=== PATIENT | male | born 1945 | race Caucasian/White ===

== ENCOUNTER 2017-02-03 06:46 | Day surgery (SDC) | payer MEDICARE, OTHER ==
[2017-02-03] MEDS ORDERED: Lactated Ringers 1,000 ML IV SCH (08:00)
[2017-02-03] MEDS ORDERED: Midazolam 1 MG/ML 2 ML SDV IV ONE (08:00)
[2017-02-03] MEDS ORDERED: Propofol 200 MG/20 ML SDV IV ONE (08:00)
--- NOTE | 2017-02-03 08:20 | PCM.OPNOTE ---
- General Post-Op/Procedure Note Date of Surgery/Procedure: 02/03/17 Operative Procedure(s): c scope with bx Findings: diverticulosis distal transverse colon polyp Pre Op Diagnosis: hx of dysplastic colon polyp Post-Op Diagnosis: diverticulosis. distal transverse colon polyp Anesthesia Technique: MAC Primary Surgeon: Jose Burgos Anesthesia Provider: Kayla Campos Pathology: transverse colon polyp Complications: None Condition: Good Free Text/Narrative:: see dictation
[2017-02-03 09:42] VITALS: BP 129/82
--- NOTE | 2017-02-03 11:07 | OR ---
DATE OF OPERATION: 02/03/2017 SURGEON: Jose Burgos MD PROCEDURE PERFORMED: Colonoscopy with cold forceps biopsy. PREOPERATIVE DIAGNOSIS: History of dysplastic colon polyps. POSTOP DIAGNOSIS: 3 mm polyp, distal transverse colon. INDICATIONS FOR PROCEDURE: This is a 71-year-old white male, who presents for followup colonoscopy. 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 He was offered and accepted the scope. DESCRIPTION OF OPERATION: After an excellent IV sedation was administered, digital rectal exam was performed. No marked abnormality was noted. The flexible colonoscope was inserted and advanced to the cecum without difficulty. The prep was excellent. The following findings were noted. Ascending colon, unremarkable. Transverse colon; distal transverse colon, hidden behind a fold, small 3-4 mm polyp biopsied in a single bite with a 5 mm polyp with biopsy forceps. Descending colon, scattered diverticula. Sigmoid, mild diverticulosis. Rectum and anus unremarkable. Colon was deflated, scope was removed. The patient tolerated the procedure well and was taken to recovery room in good condition. /[id number] /MODL
== END 2017-02-03 09:22 | disposition home or self-care (01) ==
LOC: FB.SDS 06:46
PROVIDERS: ATTEND Surgery
DX: Z12.11 Encounter for screening for malignant neoplasm of colon (principal); D12.3 Benign neoplasm of transverse colon; K57.30 Diverticulosis of large intestine without perforation or abscess without bleeding; K21.9 Gastro-esophageal reflux disease without esophagitis; Z98.890 Other specified postprocedural states; Z79.82 Long term (current) use of aspirin
CPT/HCPCS: 00902; 45380; 88305; J2250; J2704; J7120

== ENCOUNTER 2017-08-18 06:47 | Day surgery (SDC) | payer MEDICARE, OTHER ==
[~2017-08-18 06:47] MED LIST: Lactated Ringers 1,000 ML IV SCH; Sodium Chloride 0.9% 10 ML Syringe FLUSH PRN
[2017-08-18] MEDS ORDERED: Propofol 200 MG/20 ML SDV IV ONE (06:48)
--- NOTE | 2017-08-18 08:18 | PCM.OPNOTE ---
- General Post-Op/Procedure Note Date of Surgery/Procedure: 08/18/17 Operative Procedure(s): c scope with bx Findings: diverticulosis descending colon polyp Pre Op Diagnosis: hx of dysplastic colon polyp Post-Op Diagnosis: diverticulosis. descending colon polyp Anesthesia Technique: BRENDA Primary Surgeon: Jose Burgos Anesthesia Provider: Mike Randolph Pathology: colon polyp Complications: None Condition: Good Free Text/Narrative:: see dictation
--- NOTE | 2017-08-18 10:02 | OR ---
DATE OF OPERATION: 08/18/2017 SURGEON: Jose Burgos MD PROCEDURE PERFORMED: Colonoscopy with cold forceps biopsy. PREOPERATIVE DIAGNOSIS: Personal history of dysplastic colon polyp. POSTOPERATIVE DIAGNOSIS: Small 1 mm polyp, descending colon. INDICATIONS FOR PROCEDURE: This is a 72-year-old white male who presented for followup colonoscopy. The patient had a scope 6 months ago and had several polyps removed including one that had some dysplastic changes. He was therefore offered and accepted a C-scope. DESCRIPTION OF PROCEDURE: After an excellent IV sedation was administered, digital rectal exam was performed. No marked abnormality was noted. Flexible colonoscope was inserted and advanced to the cecum without difficulty. The following findings were noted: Prep was good. Ascending colon, occasional diverticula. Transverse colon, occasional diverticula. Descending colon; on the backside of one fold, a small 1 mm polypoid appearing lesion was encountered, biopsied with cold biopsy forceps and sent for permanent. Occasional diverticula. Sigmoid, mild diverticulosis. Rectum and anus unremarkable. Colon was deflated. Scope was removed. The patient tolerated the procedure well and was taken to Recovery in good condition. /[id number] /MODL
[2017-08-18 10:26] VITALS: BP 143/72
== END 2017-08-18 09:15 | disposition home or self-care (01) ==
LOC: FB.SDS 06:47
PROVIDERS: ATTEND Surgery
DX: K63.5 Polyp of colon (principal); K57.30 Diverticulosis of large intestine without perforation or abscess without bleeding; D01.0 Carcinoma in situ of colon; M10.9 Gout, unspecified; Z86.010 Personal history of colon polyps; Z79.82 Long term (current) use of aspirin; Z98.890 Other specified postprocedural states
CPT/HCPCS: 00810; 45380; 88305; J2704; J7120

== ENCOUNTER 2022-04-07 07:32 | Day surgery (SDC) | payer MEDICARE, OTHER ==
[~2022-04-07 07:32] MED LIST changes: +Lactated Ringers 1,000 ML IV PRN; -Lactated Ringers 1,000 ML IV SCH; -Sodium Chloride 0.9% 10 ML Syringe FLUSH PRN
[2022-04-07] MEDS ORDERED: Midazolam 1 MG/ML 2 ML SDV IV ONE (07:33)
[2022-04-07] MEDS: Sodium Chloride 0.9% 10 ML Syringe FLUSH PRN (08:23)
[2022-04-07] MEDS: acetaZOLAMIDE 500 MG Cap.ER PO ONE (09:50)
[2022-04-07 09:59] VITALS: PULSE 60
[2022-04-07 10:02] VITALS: BP 135/92
== END 2022-04-07 10:10 | disposition home or self-care (01) ==
LOC: FB.SDS 07:32
PROVIDERS: ATTEND Ophthalmology
DX: H25.813 Combined forms of age-related cataract, bilateral (principal); I25.2 Old myocardial infarction; N18.32 Chronic kidney disease, stage 3b; E78.2 Mixed hyperlipidemia; H43.811 Vitreous degeneration, right eye; H40.013 Open angle with borderline findings, low risk, bilateral; H52.223 Regular astigmatism, bilateral; I25.10 Atherosclerotic heart disease of native coronary artery without angina pectoris; I50.9 Heart failure, unspecified; Z79.899 Other long term (current) drug therapy
CPT/HCPCS: A9270-GY; J2250; J3490; V2632

== ENCOUNTER 2022-04-21 09:00 | Day surgery (SDC) | payer MEDICARE, OTHER ==
[2022-04-21] MEDS ORDERED: fentaNYL 100 MCG/2 ML SDV IV ONE (09:01)
[2022-04-21] MEDS ORDERED: Midazolam 1 MG/ML 2 ML SDV IV ONE (09:01)
[2022-04-21] MEDS ORDERED: Lactated Ringers 1,000 ML IV PRN (09:30)
[2022-04-21] MEDS ORDERED: Sodium Chloride 0.9% 10 ML Syringe FLUSH PRN (09:30)
[2022-04-21] MEDS ORDERED: acetaZOLAMIDE 500 MG Cap.ER PO ONE (11:00)
[2022-04-21 12:27] VITALS: BP 119/77; PULSE 59
== END 2022-04-21 11:25 | disposition home or self-care (01) ==
LOC: FB.SDS 09:00
PROVIDERS: ATTEND Ophthalmology
DX: H25.813 Combined forms of age-related cataract, bilateral (principal); H43.811 Vitreous degeneration, right eye; H40.013 Open angle with borderline findings, low risk, bilateral; H52.223 Regular astigmatism, bilateral; I25.2 Old myocardial infarction; I25.5 Ischemic cardiomyopathy; I12.9 Hypertensive chronic kidney disease with stage 1 through stage 4 chronic kidney disease, or unspecified chronic kidney disease; N18.32 Chronic kidney disease, stage 3b; E78.2 Mixed hyperlipidemia; N17.9 Acute kidney failure, unspecified; Z79.899 Other long term (current) drug therapy; Z79.82 Long term (current) use of aspirin
CPT/HCPCS: A9270-GY; J2250; J3010; J3490; V2632